=== PATIENT | male | born 1955 | race Caucasian/White ===

== ENCOUNTER 2018-08-07 08:09 | Day surgery (SDC) | payer OTHER ==
[2018-08-06 10:07] VITALS: BMI 33.9
[2018-08-07] MEDS ORDERED: DEXAMETHASONE SOD PHOSPHATE/PF 10 MG/ML SDV ONE (09:22)
[2018-08-07] MEDS ORDERED: BUPIVACAINE HCL/PF (5 MG/ML) 30 ML VIAL IJ ONE (09:23)
[2018-08-07] MEDS ORDERED: MIDAZOLAM HCL 2 MG/2 ML SINGLE DOSE VIAL ONE (09:23)
[2018-08-07] MEDS ORDERED: BUPIVACAINE HCL/PF 2.5 MG/ML - 30 ML VIAL IJ ONE (10:23)
[2018-08-07] MEDS ORDERED: ONDANSETRON 4 MG/2 ML VIAL ONE (12:01)
[2018-08-07 12:12] VITALS: TEMP 98.2
[2018-08-07] MEDS ORDERED: oxyCODONE HCL 5 MG TABLET ONE (12:27)
--- NOTE | 2018-08-07 12:54 | OP ---
ADDENDUM Medical necessity require physician assessment, Thierry Gómez, was present and assisted at surgery. His presence was absolutely medically for the completion of the procedure. He helped to hold the arthroscope, pass instruments, and was instrumental to the repair and placement of implants. The procedure could not have been completed without his assistance. CINDA JURADO M.D. [id number]
[2018-08-07 13:51] VITALS: BP 144/85; PULSE 85
--- NOTE | 2018-08-07 14:33 | OP ---
DATE OF OPERATION: 08/07/2018 LOCATION: [facility] SURGEON: Chai Jurado MD SPECIAL SERVICES SUPERVISOR: KASIA Fleming PREOPERATIVE DIAGNOSES: 1. Right knee quadriceps tendon rupture. 2. Right knee medial and lateral meniscal tear. 3. Right knee cartilage tear. 4. Right knee synovitis. POSTOPERATIVE DIAGNOSES: 1. Right knee quadriceps tendon rupture. 2. Right knee medial and lateral meniscal tear. 3. Right knee cartilage tear. 4. Right knee synovitis. PROCEDURE: 1. Right knee open quadriceps tendon repair.2. Right knee arthroscopy with partial meniscectomy, medial and lateral meniscus. 3. Right knee arthroscopy with chondroplasty and abrasion-plasty. 4. Right knee arthroscopy with synovectomy. CPT CODE: FINDINGS: 1. Full-thickness quadriceps tendon avulsion of the superior pole of the patella. 2. Medial meniscus anterior horn tear, minor. 3. Lateral meniscus body tear. 4. Synovitis, patellofemoral medial and lateral notch. 5. Central grade 2 cartilage injury, medial femoral condyle. 6. ACL and PCL intact. 7. Central grade 2-3 cartilage tear, anterior and lateral condyle tibial plateau. 8. Superior grade 4 changes, superolateral patella, with thickened synovitis diffusely across the suprapatellar bursa into the patellofemoral joint. PROCEDURE: Informed consent was obtained. The patient came to the operating room, where the lower extremity was prepped and draped in a sterile fashion. A tourniquet was placed on the upper thigh but was not inflated. Using standard arthroscopic technique, a lateral incision and portal was made to allow for introduction of the camera into the suprapatellar bursa. This was then taken to the medial joint line, where under direct visualization, a medial incision and portal was made. Excessive synovium noted in the medial, lateral and patellofemoral and notch area was removed by an upbiter, shaver and Bovie cautery. This was found to bring in inflammatory tissue into the joint surface, a source of pain and dysfunction. Probing of the medial and lateral meniscus found tears, as described in the findings. These were removed with the upbiter and shaver and taken back to a stable rim. Grade 2 to 3 degenerative changes were treated with a chondroplasty, removing all flaking surfaces with low-setting Bovie along the periphery to prevent further flaking. Grade 4 changes, as noted, were treated with an abrasoplasty, creating a bleeding surface at the bone/cartilage interface. Aggressive debridement with shaver/kalyan created bleeding surface. Micro fracture also done when indicated in findings. After the knee arthroscopy, an incision was made starting 6 cm proximal to the superior pole of the patella to the mid pole of the patella. The quadriceps tendon was identified. It was noted to be ruptured with extension into the tendon. Loose and necrotic tissues no longer attached to the quadriceps tendon were debrided,. The superior pole of the patella was exposed and a rongeur and bur were used to create a bleeding surface. No. 5 Ethibond was used in a Sharon interlocking stitch. Two of these were placed, one on the medial and one on the lateral, creating 4 ends. Irving needle was placed through the superior pole of the patella into the central portion of the patella with 3 holes. One suture was placed through the medial hole, one through the lateral hole, and two through the central hole. These were then tied over bone bridges, bringing the quadriceps tendon into contact with the superior pole of the patella. All areas of the knee were once again reexamined. The knee was then drained and a single suture was placed in all portals. The repair was then oversewn with No. 2 FiberWire in [id number] interrupted sutures. Layered closure of the leg included 0 Vicryl, 2-0 Vicryl and dar. A sterile dressing and splint were placed. The patient was transferred to the recovery room without complication. The PA listed above was present and assisted at surgery. Their presence was absolutely medically necessary for the completion of the procedure. They helped hold the arthroscopy, pass instruments (and implants when indicated) and the procedure could not have been completed without their assistance. CHAI JURADO M.D. [id number]
== END 2018-08-07 13:50 | disposition home or self-care (01) ==
LOC: FASU 08:09
PROVIDERS: ATTEND Orthopaedic Surgery
PROC: 0SBC4ZZ Excision of Right Knee Joint, Percutaneous Endoscopic Approach (ICD-10-PCS; 2018-08-07)
PROC: 0SBC4ZZ Excision of Right Knee Joint, Percutaneous Endoscopic Approach (ICD-10-PCS; 2018-08-07)
PROC: 0SBC4ZZ Excision of Right Knee Joint, Percutaneous Endoscopic Approach (ICD-10-PCS; 2018-08-07)
PROC: 0LQL0ZZ Repair Right Upper Leg Tendon, Open Approach (ICD-10-PCS; principal; 2018-08-07 10:36)
DX: S76.111A Strain of right quadriceps muscle, fascia and tendon, initial encounter (principal); S83.241A Other tear of medial meniscus, current injury, right knee, initial encounter; S83.281A Other tear of lateral meniscus, current injury, right knee, initial encounter; S83.8X1A Sprain of other specified parts of right knee, initial encounter; M65.861 Other synovitis and tenosynovitis, right lower leg; X58.XXXA Exposure to other specified factors, initial encounter; Y93.9 Activity, unspecified; Y92.9 Unspecified place or not applicable
CPT/HCPCS: 88304-TC; 94760